=== PATIENT | female | born 1925 | race African-American/Black ===

== ENCOUNTER 2016-12-12 01:19 | Inpatient (IN) | payer MEDICARE, MEDICAID ==
[~2016-12-12] VITALS: Ht 154.9 cm; Wt 52.2 kg
[~2016-12-12 01:19] MED LIST: ACET-2178 PO; ATOR20TA; BENA20TA3 PO; CRAN475C2; DOCU250C21 PO; DONE10TA43 PO; ESCI10TA54 PO; FERR-63 PO; FOLI0.8T23 PO; HUMALOG SSI; LORA0.5T2 PO; MEMA10TA11; MEMA10TA11 PO; METF500T4; METO100T9 PO; MULT-1183; OMEG1CAP50; PANT40TA4 PO; PHOS NAK; RISP0.5T; RIVA10TA; TRAM50TA3; VIT C; ZOLP5TAB8 PO
[2016-12-12 02:18] LABS: INR 1.8; PROTHROMBIN TIME 18.3 sec
[2016-12-12 02:26] LABS: BASOPHILS % 0.5 % (0.0-2.0); EOSINOPHILS % 1.4 % (0.0-5.0); HEMATOCRIT. 34.8 % (36.0-48.0); HEMOGLOBIN. 11.5 g/dL (12.0-16.0); LYMPHOCYTES % 25.4 % (20.0-50.0); MEAN CORPUSCULAR VOLUME 97.1 fL (81.0-99.0); MEAN PLATELET VOLUME 6.8 fl (7.4-10.4); MONOCYTES % 9.7 % (2.0-8.0); PLATELET 221 x1000/uL (130-400); RED BLOOD CELL COUNT 3.59 mill/uL (4.2-5.4); RED CELL DISTRIBUTION WIDTH 15.5 % (11.6-14.6)
[2016-12-12 02:27] LABS: CARBON DIOXIDE 29 mEq/L (21-32); CHLORIDE 107 mEq/L (98-107); TROPONIN I 0.02 ng/mL (0.00-0.04)
[2016-12-12] MEDS ORDERED: SODIUM CHLORIDE 0.9% 1,000 ML IV ONE (04:04)
[2016-12-12] MEDS ORDERED: ENOXAPARIN 40MG/0.4ML SYR SUBCUT SCH (08:15)
[2016-12-12] MEDS ORDERED: CLONIDINE 0.1MG TABLET PO PRN (08:15)
[2016-12-12] MEDS ORDERED: LORAZEPAM 2MG/ML CPJ IV PRN (08:15)
[2016-12-12] MEDS ORDERED: ONDANSETRON HCL 4MG/2ML VIAL IV PRN (08:15)
[2016-12-12] MEDS ORDERED: ACETAMINOPHEN 325MG TABLET PO PRN (08:15)
[2016-12-12] MEDS ORDERED: IPRATROPIUM/ALBUTEROL 0.5-3(2.5)MG/3ML NEB INH PRN (08:15)
[2016-12-12] MEDS ORDERED: TRAMADOL 50MG TABLET PO PRN (08:30)
[2016-12-12 08:40] VITALS: BP 139/84
[2016-12-12] MEDS ORDERED: POTASSIUM CHLORIDE 20MEQ TABLET SR PO SCH (09:00)
[2016-12-12] MEDS ORDERED: DOCUSATE SODIUM 100MG CAPSULE PO SCH (09:00)
[2016-12-12] MEDS ORDERED: RIVAROXABAN 10 MG TABLET PO SCH (09:00)
[2016-12-12] MEDS ORDERED: SODIUM CHL 0.45% + KCL 20MEQ/L 1,000 ML IV SCH (10:00)
[2016-12-12] MEDS ORDERED: LEVOFLOXACIN 500MG PREMIX 100 ML IV NR (10:00)
[2016-12-12] MEDS: DOCUSATE SODIUM 250MG CAPSULE PO SCH (10:08)
[2016-12-12] MEDS: FOLIC ACID/VITAMIN B COMP W-C TABLET PO SCH (10:10)
[2016-12-12] MEDS: MEMANTINE HCL 10MG TABLET PO SCH ×2 (10:10→17:22)
[2016-12-12] MEDS: BENAZEPRIL 5MG TABLET PO SCH (10:11)
[2016-12-12] MEDS: CALCIUM CARBONATE 1250MG TABLET (500MG ELEMENTAL CALCIUM) PO SCH (10:11)
[2016-12-12] MEDS: MULTIVITAMINS,THER W-MINERALS TABLET PO SCH (10:11)
[2016-12-12] MEDS: PANTOPRAZOLE 40MG DR TABLET PO SCH (10:12)
[2016-12-12] MEDS: CHOLECALCIFEROL (D3) 1000 UNIT TABLET PO SCH (10:12)
[2016-12-12] MEDS: CITALOPRAM HYDROBROMIDE 10MG TABLET PO SCH (10:13)
[2016-12-12] MEDS: DONEPEZIL HCL 10MG TABLET PO SCH (10:14)
[2016-12-12] MEDS: FERROUS SULFATE 325MG TABLET PO SCH (10:14)
[2016-12-12] MEDS: METOPROLOL TARTRATE 50MG TABLET PO SCH ×2 (10:14→21:29)
[2016-12-12 11:59] VITALS: BP 144/85
[2016-12-12] MEDS: SILVER SULFADIAZINE 1% CREAM 50GM TOP SCH (15:24)
[2016-12-12 16:02] VITALS: BP 153/95
[2016-12-12 16:17] LABS: CREATINE KINASE MB FRACTION 1.3 ng/mL (0.5-3.6); TROPONIN I 0.02 ng/mL (0.00-0.04)
[2016-12-12 20:00] VITALS: BP 166/120
[2016-12-12] MEDS ORDERED: ZOLPIDEM TARTRATE 5MG TABLET PO PRN (21:00)
[2016-12-12] MEDS: ATORVASTATIN CALCIUM 10MG TABLET PO SCH (21:28)
[2016-12-13] VITALS: BP 118/94
[2016-12-13 00:20] LABS: CREATINE KINASE MB FRACTION 1.4 ng/mL (0.5-3.6); TROPONIN I < 0.02 ng/mL (0.00-0.04)
[2016-12-13] MEDS: SODIUM CHL 0.45% + KCL 20MEQ/L 1,000 ML IV SCH ×2 (01:58→17:27)
[2016-12-13 04:00] VITALS: BP 131/102
[2016-12-13 06:11] LABS: INR 1.3; PROTHROMBIN TIME 13.3 sec
[2016-12-13] MEDS ORDERED: DEXTROSE 50% WATER 50ML SYRINGE IV PRN (06:30)
[2016-12-13 06:35] LABS: BASOPHILS % 0.6 % (0.0-2.0); EOSINOPHILS % 1.9 % (0.0-5.0); HEMOGLOBIN. 11.8 g/dL (12.0-16.0); LYMPHOCYTES % 19.7 % (20.0-50.0); MEAN CORPUSCULAR HEMOGLOBIN 31.7 pg (28.0-32.0); MEAN CORPUSCULAR VOLUME 97.1 fL (81.0-99.0); MONOCYTES % 8.3 % (2.0-8.0); NEUTROPHILS % 69.5 % (40.0-76.0); PLATELET 223 x1000/uL (130-400); RED BLOOD CELL COUNT 3.71 mill/uL (4.2-5.4); RED CELL DISTRIBUTION WIDTH 15.1 % (11.6-14.6)
[2016-12-13 06:56] LABS: CHLORIDE 110 mEq/L (98-107)
[2016-12-13 07:01] LABS: CARBON DIOXIDE 23 mEq/L (21-32); TROPONIN I < 0.02 ng/mL (0.00-0.04)
[2016-12-13] MEDS: BLOOD SUGAR DIAGNOSTIC STRIP TEST SCH ×4 (07:40→21:27)
[2016-12-13 08:00] VITALS: BP 147/95
[2016-12-13] MEDS: INSULIN LISPRO 100 UNITS/ML SUBCUT SCH ×4 (08:10→21:00)
[2016-12-13] MEDS ORDERED: LACTULOSE 20G/30ML UDC PO SCH (09:00)
[2016-12-13] MEDS: PANTOPRAZOLE 40MG DR TABLET PO SCH (09:37)
[2016-12-13] MEDS: DOCUSATE SODIUM 250MG CAPSULE PO SCH (09:37)
[2016-12-13] MEDS: DONEPEZIL HCL 10MG TABLET PO SCH (09:38)
[2016-12-13] MEDS: BENAZEPRIL 5MG TABLET PO SCH (09:38)
[2016-12-13] MEDS: FERROUS SULFATE 325MG TABLET PO SCH (09:38)
[2016-12-13] MEDS: CHOLECALCIFEROL (D3) 1000 UNIT TABLET PO SCH (09:39)
[2016-12-13] MEDS: MEMANTINE HCL 10MG TABLET PO SCH ×2 (09:39→17:30)
[2016-12-13] MEDS: FOLIC ACID/VITAMIN B COMP W-C TABLET PO SCH (09:39)
[2016-12-13] MEDS: METOPROLOL TARTRATE 50MG TABLET PO SCH ×2 (09:39→21:26)
[2016-12-13] MEDS: MULTIVITAMINS,THER W-MINERALS TABLET PO SCH (09:43)
[2016-12-13] MEDS: CALCIUM CARBONATE 1250MG TABLET (500MG ELEMENTAL CALCIUM) PO SCH (09:43)
[2016-12-13] MEDS: CITALOPRAM HYDROBROMIDE 10MG TABLET PO SCH (09:44)
[2016-12-13] MEDS ORDERED: LEVOFLOXACIN 250MG PREMIX 50 ML IV SCH (10:00)
[2016-12-13] MEDS ORDERED: MAGNESIUM 2 G PREMIX 50 ML IV SCH (10:00)
[2016-12-13 12:00] VITALS: BP 140/95
[2016-12-13] MEDS ORDERED: LORAZEPAM 2MG/ML CPJ IV PRN (12:15)
[2016-12-13] MEDS: SILVER SULFADIAZINE 1% CREAM 50GM TOP SCH (13:18)
[2016-12-13 16:00] VITALS: BP 138/91
[2016-12-13 20:00] VITALS: BP 135/96
[2016-12-13] MEDS: ATORVASTATIN CALCIUM 10MG TABLET PO SCH (21:26)
[2016-12-14] VITALS: BP 139/89
[2016-12-14 04:00] VITALS: BP 105/80
[2016-12-14 06:10] LABS: BASOPHILS % 0.5 % (0.0-2.0); EOSINOPHILS % 1.8 % (0.0-5.0); HEMATOCRIT. 36.2 % (36.0-48.0); HEMOGLOBIN. 12.1 g/dL (12.0-16.0); LYMPHOCYTES % 18.6 % (20.0-50.0); MEAN CORPUSCULAR HEMOGLOBIN 32.2 pg (28.0-32.0); MEAN CORPUSCULAR VOLUME 96.1 fL (81.0-99.0); MEAN PLATELET VOLUME 7.1 fl (7.4-10.4); MONOCYTES % 8.2 % (2.0-8.0); NEUTROPHILS % 70.9 % (40.0-76.0); PLATELET 223 x1000/uL (130-400); RED BLOOD CELL COUNT 3.76 mill/uL (4.2-5.4); RED CELL DISTRIBUTION WIDTH 14.5 % (11.6-14.6)
[2016-12-14 06:41] LABS: CARBON DIOXIDE 27 mEq/L (21-32); CHLORIDE 106 mEq/L (98-107)
[2016-12-14] MEDS: BLOOD SUGAR DIAGNOSTIC STRIP TEST SCH ×4 (07:40→21:27)
[2016-12-14 08:00] VITALS: BP 146/99
[2016-12-14] MEDS: INSULIN LISPRO 100 UNITS/ML SUBCUT SCH ×4 (08:10→21:00)
[2016-12-14] MEDS: FOLIC ACID/VITAMIN B COMP W-C TABLET PO SCH (09:18)
[2016-12-14] MEDS: CHOLECALCIFEROL (D3) 1000 UNIT TABLET PO SCH (09:18)
[2016-12-14] MEDS: BENAZEPRIL 5MG TABLET PO SCH ×2 (09:18→09:32)
[2016-12-14] MEDS: MEMANTINE HCL 10MG TABLET PO SCH ×2 (09:18→18:03)
[2016-12-14] MEDS: FERROUS SULFATE 325MG TABLET PO SCH (09:18)
[2016-12-14] MEDS: DONEPEZIL HCL 10MG TABLET PO SCH (09:19)
[2016-12-14] MEDS: DOCUSATE SODIUM 250MG CAPSULE PO SCH (09:19)
[2016-12-14] MEDS: METOPROLOL TARTRATE 50MG TABLET PO SCH ×2 (09:28→21:27)
[2016-12-14] MEDS: MULTIVITAMINS,THER W-MINERALS TABLET PO SCH (09:35)
[2016-12-14] MEDS: CITALOPRAM HYDROBROMIDE 10MG TABLET PO SCH (09:35)
[2016-12-14] MEDS: CALCIUM CARBONATE 1250MG TABLET (500MG ELEMENTAL CALCIUM) PO SCH (09:35)
[2016-12-14] MEDS: FAMOTIDINE 20MG TABLET PO SCH (09:35)
[2016-12-14] MEDS: SILVER SULFADIAZINE 1% CREAM 50GM TOP SCH (09:41)
[2016-12-14] MEDS: LEVOFLOXACIN 250MG TABLET PO SCH (11:05)
[2016-12-14 12:00] VITALS: BP 135/84
[2016-12-14] MEDS: NITROGLYCERIN OINT 1GM/INCH UDPKT TD SCH ×2 (13:49→21:30)
[2016-12-14 16:00] VITALS: BP 130/87
[2016-12-14] MEDS: RIVAROXABAN 15 MG TABLET PO SCH (18:05)
[2016-12-14 20:00] VITALS: BP 128/85
[2016-12-14] MEDS: SODIUM CHL 0.45% + KCL 20MEQ/L 1,000 ML IV SCH (21:27)
[2016-12-14] MEDS: ATORVASTATIN CALCIUM 10MG TABLET PO SCH (21:27)
[2016-12-15] VITALS: BP 125/86
[2016-12-15 04:00] VITALS: BP 158/94
[2016-12-15] MEDS: INSULIN LISPRO 100 UNITS/ML SUBCUT SCH ×2 (05:51→13:10)
[2016-12-15] MEDS: BLOOD SUGAR DIAGNOSTIC STRIP TEST SCH ×2 (05:51→13:39)
[2016-12-15] MEDS: NITROGLYCERIN OINT 1GM/INCH UDPKT TD SCH ×2 (05:52→15:11)
[2016-12-15 06:21] LABS: BASOPHILS % 0.5 % (0.0-2.0); EOSINOPHILS % 1.8 % (0.0-5.0); HEMATOCRIT. 35.9 % (36.0-48.0); HEMOGLOBIN. 12.1 g/dL (12.0-16.0); LYMPHOCYTES % 24.6 % (20.0-50.0); MEAN CORPUSCULAR HEMOGLOBIN 32.4 pg (28.0-32.0); MEAN CORPUSCULAR VOLUME 96.5 fL (81.0-99.0); MONOCYTES % 8.2 % (2.0-8.0); NEUTROPHILS % 64.9 % (40.0-76.0); PLATELET 207 x1000/uL (130-400); RED BLOOD CELL COUNT 3.72 mill/uL (4.2-5.4)
[2016-12-15 07:46] LABS: CARBON DIOXIDE 29 mEq/L (21-32); CHLORIDE 106 mEq/L (98-107)
[2016-12-15 08:00] VITALS: BP 175/114
[2016-12-15] MEDS: METOPROLOL TARTRATE 50MG TABLET PO SCH (09:04)
[2016-12-15] MEDS: FOLIC ACID/VITAMIN B COMP W-C TABLET PO SCH (09:04)
[2016-12-15] MEDS: CHOLECALCIFEROL (D3) 1000 UNIT TABLET PO SCH (09:04)
[2016-12-15] MEDS: FAMOTIDINE 20MG TABLET PO SCH (09:04)
[2016-12-15] MEDS: MEMANTINE HCL 10MG TABLET PO SCH ×2 (09:04→18:34)
[2016-12-15] MEDS: FERROUS SULFATE 325MG TABLET PO SCH (09:04)
[2016-12-15] MEDS: DONEPEZIL HCL 10MG TABLET PO SCH (09:04)
[2016-12-15] MEDS: DOCUSATE SODIUM 250MG CAPSULE PO SCH (09:05)
[2016-12-15] MEDS: SILVER SULFADIAZINE 1% CREAM 50GM TOP SCH (09:11)
[2016-12-15] MEDS: CITALOPRAM HYDROBROMIDE 10MG TABLET PO SCH (09:11)
[2016-12-15] MEDS: MULTIVITAMINS,THER W-MINERALS TABLET PO SCH (09:11)
[2016-12-15] MEDS: CALCIUM CARBONATE 1250MG TABLET (500MG ELEMENTAL CALCIUM) PO SCH (09:11)
[2016-12-15 12:00] VITALS: BP 145/94
[2016-12-15] MEDS: LEVOFLOXACIN 250MG TABLET PO SCH (15:11)
[2016-12-15 16:12] VITALS: BP 132/78
[2016-12-15] MEDS: RIVAROXABAN 15 MG TABLET PO SCH (18:34)
[2016-12-15 20:00] VITALS: BP 156/62
== END 2016-12-15 20:20 | DRG 205 ==
LOC: ER 01:19 → 7WST 06:01 → ENRESERV 06:57
PROVIDERS: ADMIT Internal Medicine Geriatric Medicine; ATTEND Internal Medicine Geriatric Medicine
PROC: 4B02XSZ Measurement of Cardiac Pacemaker, External Approach (ICD-10-PCS; principal; 2016-12-12)
DX: M94.0 Chondrocostal junction syndrome [Tietze] (principal); G93.40 Encephalopathy, unspecified; E44.0 Moderate protein-calorie malnutrition; I50.22 Chronic systolic (congestive) heart failure; N39.0 Urinary tract infection, site not specified; I82.591 Chronic embolism and thrombosis of other specified deep vein of right lower extremity; K21.9 Gastro-esophageal reflux disease without esophagitis; I11.0 Hypertensive heart disease with heart failure; E87.6 Hypokalemia; M81.0 Age-related osteoporosis without current pathological fracture; D63.8 Anemia in other chronic diseases classified elsewhere; M19.90 Unspecified osteoarthritis, unspecified site; E78.5 Hyperlipidemia, unspecified; E83.42 Hypomagnesemia; F02.80 Dementia in other diseases classified elsewhere, unspecified severity, without behavioral disturbance, psychotic disturbance, mood disturbance, and anxiety; G30.9 Alzheimer's disease, unspecified; I35.8 Other nonrheumatic aortic valve disorders; I48.0 Paroxysmal atrial fibrillation; E11.69 Type 2 diabetes mellitus with other specified complication; R26.9 Unspecified abnormalities of gait and mobility; E11.51 Type 2 diabetes mellitus with diabetic peripheral angiopathy without gangrene; L89.610 Pressure ulcer of right heel, unstageable; Z96.641 Presence of right artificial hip joint; F32.9 Major depressive disorder, single episode, unspecified; F41.9 Anxiety disorder, unspecified; Z91.81 History of falling; Z88.2 Allergy status to sulfonamides; Z79.899 Other long term (current) drug therapy; Z95.0 Presence of cardiac pacemaker; Z87.81 Personal history of (healed) traumatic fracture; Z74.01 Bed confinement status; Z68.21 Body mass index [BMI] 21.0-21.9, adult
CPT/HCPCS: 36415; 71010; 71250; 80048; 80053; 80061; 82553; 82962; 83735; 84484; 85025; 85610; 93005; 97162; 97530; 99285; J1956; J2060; J3475; J3480; J7030